=== PATIENT | male | born 1985 | race Caucasian/White ===

== ENCOUNTER 2017-09-02 08:05 | Emergency (ER) | payer BC ==
[2017-09-02] MEDS ORDERED: NS 0.9% 1000 ML* 1,000 ML IV ONE (08:14)
[2017-09-02] MEDS ORDERED: Ketorolac INJ* 30 MG/ML 1 ML VIAL IV PUSH ONE (08:14)
[2017-09-02] MEDS ORDERED: Ondansetron ODT TAB* 4 MG PO ONE (08:33)
[2017-09-02] MEDS ORDERED: Ondansetron ODT TAB* 4 MG ONE (08:34)
--- NOTE | 2017-09-02 08:35 | ED ---
Back Pain - HPI Summary HPI Summary: Patient presents with acute worsening of a Lt flank pain he's had over the 4 weeks. It's been intermittent and he thought it may have been musculoskeletal however today he is having symptoms of this pain radiating into his side and groin along with urinary hesitation at times. He reports his pain is quite intense and he is additionally experiencing nausea with vomiting. Denies fevers , chills, chest pain, marine abdominal pain, constipation or diarrhea. No known history of kidney stones. Also denies dysuria, urinary frequency, hematuria, testicular pain or swelling and penile pain or swelling. No injury to his back nor history of back issues. - History of Current Complaint Chief Complaint: EDFlankPain Stated Complaint: FLANK PAIN Time Seen by Provider: 09/02/17 08:20 Hx Obtained From: Patient, Family/Private Detective - co-worker Pain Intensity: 10 - Allergies/Home Medications Allergies/Adverse Reactions: Allergies Allergy/AdvReac Type Severity Reaction Status Date / Time No Known Allergies Allergy Verified 09/02/17 08:12 PMH/Surg Hx/FS Hx/Imm Hx Previously Healthy: Yes Endocrine/Hematology History: Denies: Hx Anticoagulant Therapy, Hx Blood Disorders Infectious Disease History: No Infectious Disease History: Denies: Traveled Outside the [place] in Last 30 Days - Social History 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 Negative: Diarrhea Positive: see HPI Musculoskeletal: Other - Lt flank pain Skin: Negative Neurological: Negative Psychological: Normal All Other Systems Reviewed And Are Negative: Yes Physical Exam Triage Information Reviewed: Yes Vital Signs On Initial Exam: Initial Vitals Temp Pulse Resp BP Pulse Ox 98.5 F 89 18 141/104 100 09/02/17 08:08 09/02/17 08:08 09/02/17 08:08 09/02/17 08:08 09/02/17 08:08 Vital Signs Reviewed: Yes Appearance: Positive: Well-Appearing, Well-Nourished, Pain Distress Skin: Positive: Warm, Skin Color Reflects Adequate Perfusion, Dry Head/Face: Positive: Normal Head/Face Inspection Eyes: Positive: Normal, EOMI, Conjunctiva Clear ENT: Positive: Normal ENT inspection, Hearing grossly normal, Pharynx normal - mucosa moist Respiratory/Lung Sounds: Positive: Clear to Auscultation, Breath Sounds Present Cardiovascular: Positive: Normal, RRR Abdomen Description: Positive: No Organomegaly, Soft, CVA Tenderness (L), Other : - Lt side TTP. Negative: CVA Tenderness (R), Distended, Guarding Bowel Sounds: Positive: Present Musculoskeletal: Positive: Normal, Strength/ROM Intact Neurological: Positive: Normal, Sensory/Motor Intact, Alert, Oriented to Person Place, Time, CN Intact II-III Psychiatric: Positive: Normal - Standing, pacing and trying to get comfortable w /o avail Diagnostics - Vital Signs Vital Signs Temp Pulse Resp BP Pulse Ox 09/02/17 08:08 98.5 F 89 18 141/104 100 - Laboratory Result Diagrams: 09/02/17 08:41 09/02/17 08:41 Lab Statement: Any lab studies that have been ordered have been reviewed, and results considered in the medical decision making process. Re-Evaluation - Re-Evaluation First Eval Change: Improved - 12/27- 07/27 - NAUSEA RESOLVED Back Pain Course/Dx - Course Course Of Treatment: Patient presents with acute on chronic left flank pain which is much worse today since it's been over the past 4 weeks. He also reports pain moving into his left side and groin area along with intermittent urinary hesitation. This pain is significant to the point where triggered nausea with vomiting. His labs are unremarkable except for blood in his urine. His CT scan reveals a 0.6 cm stone at the proximal left ureter with mild hydronephrosis. Pt last ate breakfast at 6:30am today. Discussed the case with Dr. Beal who recommends pain control at home w/ straining and f/u Monday for stenting with lithotripsy. Pt agrees w/ plan. He also understands if he develops danger s/sx in the meantime, he will return to ED. - Diagnoses Provider Diagnoses: Left ureteral calculus Discharge - Sign-Out/Discharge Documenting (check all that apply): Discharge/Admit/Transfer - Discharge Plan Condition: Stable Disposition: HOME Prescriptions: Ibuprofen TAB* [Motrin TAB* 800 MG] 800 mg PO Q8HR PRN #20 tab PRN Reason: Pain oxyCODONE/Acetamin 5/325 MG* [Percocet 5/325 TAB*] 1 tab PO Q6H PRN #20 tab MDD 4 PRN Reason: Pain Phenazopyridine 200 mg (NF) [Pyridium 200 MG tab *] 200 mg PO TID PRN #6 tab PRN Reason: Pain Tamsulosin CAP* [Flomax CAP*] 0.4 mg PO DAILY #10 cap Patient Education Materials: Kidney Stones (ED), How to Strain Your Urine (ED) Forms: *Work Release Referrals: Luis Beal MD [Medical Doctor] - Additional Instructions: Strain your urine every urination and keep stones of collected. Take medications as directed for pain control. Follow up with Dr. Beal on Monday to schedule stent placement with lithotripsy. Call the office first thing in the morning. Contact information included here. *If in the meantime you develop intractable nausea with vomiting, intractable pain despite medications, fever, inability to urinate, return to the emergency department - Billing Disposition and Condition Condition: STABLE Disposition: Home
[2017-09-02 08:52] LABS: ABS Basophils 0 10^3/ul (0-0.2); ABS Eosinophils 0.1 10^3/ul (0-0.6); ABS Lymphocytes 0.9 10^3/ul (1.0-4.8); ABS Monocytes 0.3 10^3/ul (0-0.8); ABS Neutrophils 4.4 10^3/ul (1.5-7.7); ABS Nucleated RBC 0 10^3/ul; Eosinophil % 0.9 % (0-6); Hematocrit 46 % (42-52); Hemoglobin 15.9 g/dl (14.0-18.0); Lymphocyte % 15.7 % (25-47); Mean Corpuscular HGB Conc 35 g/dl (31-36); Mean Corpuscular Hemoglobin 32 pg (27-31); Mean Corpuscular Volume 91 fL (80-94); Mean Platelet Volume 8.3 um3 (7.4-10.4); Nucleated Red Blood Cells % 0.2; Platelet Count 173 10^3/ul (150-450); Red Blood Count 5.05 10^6/ul (4.00-5.40); Red Cell Distribution Width 13 % (10.5-15); White Blood Count 5.7 10^3/ul (3.5-10.8)
[2017-09-02 09:10] LABS: Urine Appearance Cloudy; Urine Blood 2+ (Negative); Urine Color Yellow; Urine Ketones Negative (Negative); Urine Protein Negative (Negative); Urine Specific Gravity 1.015 (1.010-1.030); Urine Urobilinogen Negative (Negative)
--- NOTE | 2017-09-02 09:10 | RAD ---
CLINICAL HISTORY: flank pain , COMPARISON: None TECHNIQUE: Multiple contiguous axial CT scans were obtained of the abdomen and pelvis, without intravenous contrast enhancement. Coronal and sagittal multiplanar reformations are submitted for review. Oral contrast was not administered. The study is limited by the lack of intravenous contrast. This limits evaluation of the solid organs and vasculature. FINDINGS: LUNG BASES: The lung bases are clear. LIVER: The liver is normal in shape, size, contour, and attenuation. BILE DUCTS: There is no intrahepatic or extrahepatic biliary dilatation. GALLBLADDER: The gallbladder is normal, without pericholecystic inflammatory change. PANCREAS: The pancreas is normal, without mass or ductal dilatation. SPLEEN: Normal in size and appearance. UPPER GI TRACT: Evaluation of the gastrointestinal tract is limited by incomplete gastric distention. The upper GI tract is unremarkable. SMALL BOWEL AND MESENTERY: The small bowel is normal in contour, course, and caliber. There is no obstruction or dilatation. COLON: The colon is normal in contour, course, caliber. There is no pericolonic inflammatory change. There is a tubular, vermiform, hollow viscus that is blind ending, and originates from the cecum, consistent with a normal appendix. There is no periappendiceal inflammatory change. ADRENALS: Normal bilaterally. KIDNEYS: There are multiple left renal calyceal stones measuring up to 0.4 cm in size. There is a calculus of the proximal third of the left ureter measuring 0.6 x 0.4 cm. There is mild left pelvocaliectasis. BLADDER: The bladder is incompletely distended but is grossly normal. PELVIC ORGANS: The prostate gland is normal. The seminal vesicles are symmetric. AORTA: The aorta is normal. IVC: Unremarkable LYMPH NODES: There is no lymphadenopathy by size criteria. ABDOMINAL WALL: There is no evidence for abdominal wall hernia. BONES AND SOFT TISSUES: There is transitional anatomy. There are bilateral pars defects at L5. There is partial lumbarization of S1 vertebral body. OTHER: None IMPRESSION: 1. LEFT NEPHROLITHIASIS INCLUDING A 0.6 CM CALCULUS OF THE PROXIMAL THIRD OF THE LEFT URETER WITH ASSOCIATED MILD HYDRONEPHROSIS. 2. SPONDYLOLYSIS.
[2017-09-02 09:17] LABS: EGFR Non-African American 64.3 (>60)
--- NOTE | 2017-09-02 11:30 | RAD ---
HISTORY: PROXIMAL LT UTRETRAL STONE COMPARISONS: CT dated September 02, 2017 VIEWS: Frontal views of the abdomen. FINDINGS: BOWEL: There is a nonobstructive bowel gas pattern. CALCULI: Again noted is a calculus overlying the left hemiabdomen lateral to the transverse process of L3 corresponding to the ureteral stone noted on the previous CT examination. This measures 0.6 cm in size. BONES AND SOFT TISSUES: There are no osseous abnormalities. OTHER FINDINGS: The lung bases are clear. There is no subphrenic gas. IMPRESSION: AGAIN NOTED IS A LEFT URETERAL CALCULUS
[2017-09-02 11:38] VITALS: BP 141/79
--- NOTE | 2017-09-02 13:24 | CONS ---
CC: Dr. Darnell Scott; Luis Beal MD * UROLOGY CONSULTATION REPORT: DATE OF CONSULT: 09/02/17 REQUESTING PHYSICIAN: MARGOT Sow, in the emergency department. DIAGNOSES: 1. Left hydronephrosis. 2. Calculus, left proximal ureter. 3. Left renal calculi. HISTORY OF PRESENT ILLNESS: Carson Enamorado is a 32-year-old gentleman who has had episodic left flank pain for the last 3 to 4 weeks. This got much more severe this morning and was associated with nausea, prompting a trip to the emergency department. A CT scan revealed an approximately 6-mm calculus in the left proximal ureter with left hydronephrosis and additional left renal calculi. PAST MEDICAL HISTORY: Unremarkable. Specifically there is no history of diabetes mellitus or any other major systemic illness. PAST SURGICAL HISTORY: Unremarkable. MEDICATIONS ON ADMISSION: None. ALLERGIES: No known drug allergies. REVIEW OF SYSTEMS: He is otherwise in excellent health. He denies any chest pain or shortness of breath. PHYSICAL EXAM: Pleasant, mildly uncomfortable healthy appearing young gentleman. Blood pressure is 141/79, pulse 89 per minute and regular, temperature 99.4, oxygen saturation 97% on room air. Cardiovascular exam reveals regular rate and rhythm. S1, S2. Lungs are clear bilaterally. Abdomen is soft with mild left flank tenderness. DIAGNOSTIC STUDIES/LAB DATA: Review of labs reveals a white count of 5.7, hemoglobin and hematocrit are normal at 15.9 and 46 respectively with a platelet count of 173,000. Review of chemistries reveal sodium of 140, potassium of 3.8, BUN and creatinine are 15 and 1.28 (mildly elevated creatinine) and glucose is 129. Lactic acid is 1.6. Urinalysis shows 2+ rbc's with absent bacteria. I reviewed the CT and KUB which reveal a 6 to 7 mm calculus in the proximal left ureter with mild hydronephrosis noted on the CT and additional smaller renal calculi. ASSESSMENT AND PLAN: I had a detailed discussion with Mr. Enamorado regarding the options for management of this proximal left ureteral calculus. I discussed conservative management and also discussed the option of bringing him in for shockwave lithotripsy and left stent insertion on 09/04/17, and in this way he could have the lithotripsy and stent insertion done as a single procedure rather than have to have a staged procedure where he would have to have a stent placed today and then come back on 09/04/17 for lithotripsy. I have instructed him to call me if he has any severe flank pain, vomiting or temperature greater than 101 in which case he may require more urgent stent insertion over the weekend to be followed by lithotripsy on 09/04/17. [id number]/[facility] #: [id number] ALISE
== END 2017-09-02 11:40 | disposition home or self-care (01) ==
LOC: ED 08:05
DX: N13.2 Hydronephrosis with renal and ureteral calculous obstruction (principal)
CPT/HCPCS: 36415; 74018; 74176; 80053; 81003; 81015; 83605; 83690; 85025; 86140; 96361; 96374; 99282; A9270-GY; J1885

== ENCOUNTER 2017-09-04 09:39 | Day surgery (SDC) | payer BC ==
[2017-09-04] MEDS ORDERED: Buffered Lidocaine 0.9% SYRIN* 5 ML/SYR SYRINGE ONE (10:16)
[2017-09-04] MEDS ORDERED: cefTRIAXone(*) 2 GM ADDV.VIAL IVPB ONE (10:16)
[2017-09-04] MEDS ORDERED: Ondansetron ODT TAB* 4 MG PO PRN (10:58)
[2017-09-04] MEDS ORDERED: Buffered Lidocaine 0.9% SYRIN* 5 ML/SYR SYRINGE INTRADERM ONE (10:58)
[2017-09-04] MEDS ORDERED: Naloxone* 0.4 MG/ML 1 ML VIAL IV PRN (10:58)
[2017-09-04] MEDS ORDERED: HYDROcodone/ACETAMIN 5-325 MG* 1 TAB PO PRN (10:58)
[2017-09-04] MEDS ORDERED: PROCHLORPERAZINE INJ 5 MG/ML 2 ML VIAL IV PRN (10:58)
[2017-09-04] MEDS ORDERED: DiMENhydriNATE IV* 50 MG/ML VIAL IV PUSH PRN (10:58)
[2017-09-04] MEDS ORDERED: Acetaminophen TAB* 325 MG PO PRN (10:58)
[2017-09-04] MEDS ORDERED: fentaNYL* 50 MCG/ML 2 ML VIAL (100 MCG VIAL) IV PRN (10:58)
[2017-09-04] MEDS ORDERED: Midazolam* 1 MG/ML 2 ML VIAL (2 MG) ONE ×2 (11:18→12:31)
[2017-09-04] MEDS ORDERED: fentaNYL* 50 MCG/ML 2 ML VIAL (100 MCG VIAL) ONE ×2 (11:18→12:23)
[2017-09-04] MEDS ORDERED: Iohexol 180 (CONTRAST) 10 ML SDV IV ONE (11:55)
[2017-09-04] MEDS ORDERED: Famotidine IV* 10 MG/ML 2 ML (20 mg) ONE (12:15)
[2017-09-04] MEDS ORDERED: Propofol* 10 MG/ML 20 ML BTL IV PUSH ONE (12:15)
[2017-09-04] MEDS ORDERED: Dexamethasone IV* 4 MG/ML 1 ML (4 MG) ONE (12:15)
[2017-09-04] MEDS ORDERED: Furosemide IV* 10 MG/ML 2 ML VIAL (20 MG) ONE (12:46)
[2017-09-04 14:49] VITALS: BP 155/87
--- NOTE | 2017-09-04 15:13 | RAD ---
INDICATION: Left urolithiasis COMPARISON: September 02, 2017 TECHNIQUE: A single view of the abdomen is submitted. FINDINGS: Bones: There are no acute bony findings. Soft tissues: The soft tissues appear normal. The psoas margins are sharp. Bowel gas pattern: Normal Calcifications: There is a small radiodensity adjacent to the proximal ureter which may represent the left ureteral calculus. There is now a stent in place. Other: None IMPRESSION: LEFT URETERAL STENTING. THE LEFT URETERAL CALCULUS MAY BE IN A MORE PROXIMAL LOCATION ON TODAY'S STUDY.
--- NOTE | 2017-09-05 08:55 | OP ---
CC: Dr. Darnell Scott * DATE OF OPERATION: 09/04/17 - [facility] DATE OF : 81. SURGEON: Luis Beal M.D. ANESTHESIOLOGIST: Dr. Barry. ANESTHESIA: General. PRE-OP DIAGNOSES: 1. Calculus, left proximal ureter. 2. Left hydronephrosis. POST-OP DIAGNOSES: 1. Calculus, left proximal ureter. 2. Left hydronephrosis. OPERATIVE PROCEDURES: 1. Shock wave lithotripsy of calculus, left ureter. 2. Left retrograde and left stent insertion. COMPLICATIONS: None. POSTOPERATIVE CONDITION: Stable. STENT USED: 6-Ghanaian stent, left ureter. INDICATIONS: Carson Enamorado is a 32-year-old gentleman, who had been evaluated in the emergency room a few days ago because of left flank pain and nausea secondary to an approximately 6-mm calculus in the proximal left ureter with mild left hydronephrosis. DESCRIPTION OF PROCEDURE: After induction of general anesthesia, the patient was placed on the lithotripsy table in the supine position. The calculus in the proximal left ureter was localized using fluoroscopy. Shock wave lithotripsy was commenced at a rate of 60 shocks per minute. Periodic imaging revealed adequate localization and a total of 1500 shocks were delivered. Next, the patient was placed in the dorsal lithotomy position. Cystoscopy was performed. The urethra was evaluated and was unremarkable. The bladder was examined and also appeared normal. Left retrograde pyelogram revealed fullness of the left collecting system, and a 6-Ghanaian stent was introduced and positioned under fluoroscopy with good proximal and distal positioning noted. I did note that the ureter on the left side appeared fairly narrow and even the 4-Ghanaian open-ended catheter was a little snug in the left ureter. The patient tolerated the procedure satisfactorily and was transferred back to the recovery area in stable condition. [id number]/[facility] #: [id number] MTDD
== END 2017-09-04 14:52 | disposition home or self-care (01) ==
LOC: OR 09:39
PROVIDERS: ATTEND Urology
DX: N20.1 Calculus of ureter (principal); N13.30 Unspecified hydronephrosis
CPT/HCPCS: 74018; C1876; J0696; J1100; J1940; J2250; J2704; J3010

== ENCOUNTER 2021-09-25 23:38 | Observation (INO) ==
[2021-09-25] MEDS ORDERED: Morphine 4 MG/ML VIAL (1 ml) IV ONE (23:55)
[2021-09-25] MEDS ORDERED: Lactated Ringers 1000 ml BAG 1,000 ML IV ONE (23:55)
[2021-09-25] MEDS ORDERED: Ondansetron 4 mg VIAL 2 MG/ML 2 ml VIAL IV ONE (23:55)
[2021-09-26] MEDS ORDERED: Morphine 4 MG/ML VIAL (1 ml) IV ONE ×3 (02:15→06:50)
[2021-09-26] MEDS ORDERED: cefTRIAXone 2 gm/50 mL D5W 2 GM/50 ML BAG IV ONE (06:50)
[2021-09-26] MEDS ORDERED: Lactated Ringers 1000 ml BAG 1,000 ML IV ONE (06:50)
[2021-09-26] MEDS ORDERED: Ondansetron 4 mg VIAL 2 MG/ML 2 ml VIAL IV PRN ×2 (07:40→12:47)
[2021-09-26] MEDS ORDERED: Acetaminophen IV 1 GM/100ML 100 ML IV PRN (07:40)
[2021-09-26] MEDS ORDERED: NS 0.9% 1000 ml BAG 1,000 ML IV SCH (07:45)
[2021-09-26 08:00] LABS: ABS Basophils 0.1 10^3/ul (0-0.2); ABS Lymphocytes 4.2 10^3/ul (1.0-4.8); ABS Neutrophils 3.4 10^3/ul (1.5-7.7); Eosinophil % 0.2 %; Hematocrit 41 % (42-52); Hemoglobin 14.2 g/dL (14.0-18.0); Lymphocyte % 48.9 %; Mean Corpuscular HGB Conc 35 g/dL (31-36); Mean Corpuscular Hemoglobin 31 pg (27-31); Mean Corpuscular Volume 89 fL (80-94); Mean Platelet Volume 7.9 fL (7.4-10.4); Nucleated Red Blood Cells % 0.1; Platelet Count 162 10^3/uL (150-450); Red Blood Count 4.53 10^6 /uL (4.18-5.48); Red Cell Distribution Width 13 % (10-15); White Blood Count 8.7 10^3/uL (3.5-10.8)
[2021-09-26 08:37] LABS: Albumin 3.9 g/dL (3.2-5.2); Albumin/Globulin Ratio 1.6 (1-3); C Reactive Protein 16.65 mg/L (<8.01); Calcium 9.2 mg/dL (8.6-10.3); Globulin 2.5 g/dL (2-4); Potassium 4.1 mmol/L (3.5-5.0); Total Bilirubin 0.5 mg/dL (0.2-1.0); Total Protein 6.4 g/dL (6.4-8.9); Uric Acid 7.1 mg/dL (4.4-7.6); eGFR CKD-EPI 63.3 (>60)
[2021-09-26] MEDS ORDERED: Iohexol 180 (CONTRAST) 20 ML SDV IV ONE (12:08)
[2021-09-26] MEDS ORDERED: Propofol 10 MG/ML 20 ML BTL ONE (12:40)
[2021-09-26] MEDS ORDERED: Dexamethasone IV 4 MG/ML VIAL 1 ml VIAL ONE (12:40)
[2021-09-26] MEDS ORDERED: Buffered Lidocaine 1% SYRIN 1 ml INTRADERM ONE (12:45)
[2021-09-26] MEDS ORDERED: fentaNYL 100 mcg/2 ml 50 MCG/ML VIAL IV PRN (12:47)
[2021-09-26] MEDS ORDERED: Naloxone 0.4 mg VIAL 0.4 mg/ml 1 ml VIAL IV PRN (12:47)
[2021-09-26] MEDS ORDERED: Metoclopramide 5 MG/ML VIAL (10 mg) IV PRN (12:47)
[2021-09-26] MEDS ORDERED: HYDROcodone/ACETAMIN 5/325 mg TAB PO PRN (12:47)
[2021-09-26] MEDS ORDERED: Lactated Ringers 1000 ml BAG 1,000 ML IV SCH (13:00)
[2021-09-26 15:54] VITALS: BP 154/97
== END 2021-09-26 15:53 | disposition home or self-care (01) ==
LOC: ED 23:38 → EDHOLD 23:38 → SSU 09-26 09:30
PROVIDERS: ADMIT Internal Medicine; ATTEND Internal Medicine

== ENCOUNTER 2023-10-07 18:48 | Observation (INO) ==
[2023-10-07] MEDS: NS 0.9% 1000 ml BAG 1,000 ML IV ONE (19:52)
[2023-10-07] MEDS: Ondansetron 4 mg VIAL 2 MG/ML 2 ml VIAL IV ONE (19:56)
[2023-10-07 20:36] LABS: ABS Monocytes 0.6 10^3/uL (0.0-1.1); ABS Neutrophils 10.8 10^3/uL (1.5-7.6); ABS Nucleated RBC 0.01 10^3/ul; Eosinophil % 0.2 %; Hematocrit 44.8 % (38-53); Hemoglobin 15.3 g/dL (13.2-16.3); Lymphocyte % 7.7 %; Mean Corpuscular Hemoglobin 30.6 pg (27-33); Mean Corpuscular Hgb Conc 34.2 g/dL (31-36); Mean Corpuscular Volume 89.6 fL (80-97); Mean Platelet Volume 9.1 fL (7.5-11.2); Nucleated Red Blood Cells % 0.1 %/100WBC (0.0-0.8); Platelet Count 189 10^3/uL (150-450); White Blood Count 12.4 10^3/uL (3.6-10.2)
[2023-10-07 20:51] LABS: Albumin 4.8 g/dL (3.2-5.2); Albumin/Globulin Ratio 2.1 (1-3); C Reactive Protein 2.12 mg/L (<8.01); Calcium 9.6 mg/dL (8.6-10.3); Creatinine, Serum 1.41 mg/dL (0.67-1.17); Globulin 2.3 g/dL (2-4); Potassium 3.8 mmol/L (3.5-5.0); Total Bilirubin 0.8 mg/dL (0.2-1.0); Total Protein 7.1 g/dL (6.4-8.9); eGFR CKD-EPI 64.6 (>60)
[2023-10-07 22:17] LABS: Urine Appearance Clear; Urine Bilirubin Negative (Negative); Urine Blood 3+ (Negative); Urine Color Light-Yellow; Urine Glucose Negative (Negative); Urine Ketones Trace (Negative); Urine Nitrite Negative (Negative); Urine Protein Trace (Negative); Urine Specific Gravity 1.016 (1.002-1.030); Urine Urobilinogen Negative (Negative)
[2023-10-07 22:22] LABS: Urine Bacteria Absent /HPF (Absent); Urine Red Blood Cell 3+(>10/hpf) /HPF (0-Trace); Urine White Blood Cell 2+(11-20/hpf) /HPF (0-Trace)
[2023-10-07] MEDS: HYDROmorphone 0.5 MG/0.5 ML SYRINGE IV ONE (22:25)
[2023-10-08] MEDS ORDERED: Morphine 2 MG/ML SYRINGE IV PRN (07:23)
[2023-10-08] MEDS ORDERED: cefTRIAXone 2 GM ADDV.VIAL 2 GM in NS 0.9% 100 ml BAG 100 ML IV ONE (08:06)
[2023-10-08] MEDS ORDERED: Ondansetron 4 mg VIAL 2 MG/ML 2 ml VIAL IV PRN (08:08)
[2023-10-08] MEDS ORDERED: Acetaminophen IV 1 GM/100ML 1,000 MG/100 ML BAG IV ONE (08:08)
[2023-10-08] MEDS ORDERED: Naloxone 0.4 mg VIAL 0.4 mg/ml 1 ml VIAL IV PRN (08:08)
[2023-10-08] MEDS ORDERED: fentaNYL 100 mcg/2 ml 50 MCG/ML VIAL IV PRN (08:08)
[2023-10-08] MEDS ORDERED: Buffered Lidocaine 1% SYRIN 1 ml INTRADERM ONE (08:08)
[2023-10-08] MEDS ORDERED: cefTRIAXone 2 gm/50 mL D5W 2 GM/50 ML BAG IV ONE (08:23)
[2023-10-08] MEDS: cefTRIAXone 2 gm/50 mL D5W 2 GM/50 ML BAG IV ONE (08:37)
[2023-10-08] MEDS ORDERED: Lidocaine 2% PF 5 ML VIAL ONE (08:48)
[2023-10-08] MEDS ORDERED: Midazolam 2 mg/2 ml VIAL 1 mg/ml 2 ml VIAL (2 mg) ONE (08:49)
[2023-10-08] MEDS ORDERED: fentaNYL 100 mcg/2 ml 50 MCG/ML VIAL ONE (08:49)
[2023-10-08] MEDS ORDERED: Lactated Ringers 1000 ml BAG 1,000 ML IV SCH ×2 (09:00)
[2023-10-08] MEDS ORDERED: Iohexol 180 (CONTRAST) 10 ML SDV IV ONE (09:38)
[2023-10-08] MEDS ORDERED: Ondansetron 4 mg VIAL 2 MG/ML 2 ml VIAL ONE (09:39)
[2023-10-08] MEDS ORDERED: Dexamethasone IV 4 MG/ML VIAL 1 ml VIAL ONE (09:39)
[2023-10-08] MEDS ORDERED: Propofol 10 MG/ML 20 ML BTL ONE (09:39)
[2023-10-08 11:49] VITALS: BP 150/94
== END 2023-10-08 12:10 | disposition short-term general hospital (02) ==
LOC: EDHOLD 18:48 → ED 18:48 → INTOOBSV 23:53 → AA 10-08 08:23
PROVIDERS: ADMIT Internal Medicine; ATTEND Hospitalist